=== PATIENT | female | born 1975 ===

== ENCOUNTER 2016-09-10 09:19 | Inpatient (IN) | payer OTHER ==
[2016-09-04 08:50] VITALS: BMI 22.6
[2016-09-10] MEDS ORDERED: Lactated Ringer's 1,000 ML IV ONE ×3 (11:15→14:00)
[2016-09-10] MEDS ORDERED: Propofol 10 mg/ml Inj (20 ML) ONE (11:24)
[2016-09-10] MEDS ORDERED: Midazolam 2 MG/2 ML VIAL ONE (11:24)
[2016-09-10] MEDS ORDERED: cefOXitin IV 2 gm in Dextrose 2 GM/50 ML BAG IVPB ONE ×2 (11:40→15:34)
[2016-09-10] MEDS ORDERED: Sodium Chloride 0.9% 60 ML IV ONE (12:01)
[2016-09-10] MEDS ORDERED: Vasopressin 20 Units/ml Inj ONE (12:01)
[2016-09-10] MEDS ORDERED: Methylene Blue 10 mg/mL(10ml) IV ONE (13:50)
[2016-09-10] MEDS ORDERED: Clindamycin 2% Vaginal Cream(40 gm) ONE (15:25)
[2016-09-10] MEDS ORDERED: Neostigmine Methylsulfate 3mg/3ml Syringe IV ONE (15:26)
[2016-09-10] MEDS ORDERED: Sodium Chloride 0.9% 1,000 ML IV SCH (15:45)
[2016-09-10] MEDS ORDERED: HYDROmorphone 0.5 mg/0.5 ml ISec IVP PRN ×2 (15:51→16:07)
--- NOTE | 2016-09-10 16:57 | PCM.SURG1 ---
Surgeon's Initial Post Op Note - Surgeon's Notes Surgeon: Dr. Mohamud Parts Sales Advisor: Dr. Silva Type of Anesthesia: General Endo Anesthesia Administered By: Dr. Mendoza Pre-Operative Diagnosis: 40 yo with Chronic Pelvic Pain, Menorrhagia, Fibroid uterus , Endometriosis , Failure of Medical surgical theRAPy Operative Findings: AV uterus, Dense Multiple adhesion , Right Ovarian cyst Post-Operative Diagnosis: same as above with additional finding Dense adhesions Operation Performed: Laparoscopy Hysterectomy , RSA, Left salpingectomy, Lysis of adhesion Cystoscopy Specimen/Specimens Removed: Uterus, cervix, Right tube and ovary , Left Tube Estimated Blood Loss: EBL {In ML}: 100 Blood Products Given: N/A Drains Used: No Drains Post-Op Condition: Good Date of Surgery/Procedure: 09/10/16 Time of Surgery/Procedure: 16:59
[2016-09-10] MEDS ORDERED: Sodium Chloride 0.9% 1,000 ML IV ONE (17:15)
[2016-09-10] MEDS: Oxycodone/Acetaminophen 5/325 mg Tab PO PRN (22:10)
[2016-09-11] MEDS: Lactated Ringer's 1,000 ML IV SCH ×3 (01:54→09:11)
[2016-09-11] MEDS: Oxycodone/Acetaminophen 5/325 mg Tab PO PRN ×4 (05:50→20:56)
[2016-09-11 07:19] LABS: CHLORIDE 100 mmol/L (98-107); HEMATOCRIT 31.8 % (34.0-47.0); MEAN CELL VOLUME 82.3 fL (81.0-99.0); MEAN CORPUSCULAR HEMOGLOBIN 27.1 pg (27.0-31.0); MEAN PLATELET VOLUME 9.4 fL (7.2-11.7); POTASSIUM 3.2 mmol/L (3.6-5.2); RED CELL DISTRIBUTION WIDTH 14.4 % (11.5-14.5); SODIUM 134 mmol/L (132-148); WHITE BLOOD COUNT 9.9 K/uL (4.8-10.8)
[2016-09-11 07:22] LABS: BLOOD UREA NITROGEN 9 mg/dL (7-17); CARBON DIOXIDE 28 mmol/L (22-30); GFR AFRICAN-AMERICAN > 60
[2016-09-11 07:23] LABS: CALCIUM 7.7 mg/dl (8.6-10.4); GLUCOSE,RANDOM 113 mg/dL (65-105)
[2016-09-11] MEDS: Potassium Chloride 20 mEq ER Tab PO SCH ×2 (11:02→18:05)
--- NOTE | 2016-09-11 21:06 | CP.PCM.PN ---
Subjective - Date & Time of Evaluation Date of Evaluation: 09/11/16 Time of Evaluation: 09:00 - Subjective Subjective: pt doing well, slow to advance, still on clears, voiding via vargas, has not gotten OOB Objective - Vital Signs/Intake and Output Vital Signs (last 24 hours): Temp Pulse Resp BP Pulse Ox 99.5 F 86 20 101/66 99 09/11/16 16:00 09/11/16 16:00 09/11/16 16:00 09/11/16 16:00 09/11/16 16:00 Intake and Output: 09/11/16 09/12/16 18:59 06:59 Intake Total 2075 Output Total 1150 Balance 925 - Medications Medications: Current Medications Ascorbic Acid (Vitamin C 500 Mg Tab) 500 mg PO DAILY [facility] Last Admin: 09/11/16 09:06 Dose: 500 mg Docusate Sodium (Colace) 100 mg PO BID [facility] Last Admin: 09/11/16 18:06 Dose: 100 mg Hydromorphone HCl (Dilaudid) 0.5 mg IVP Q4H PRN PRN Reason: Pain, severe (8-10) Sodium Chloride (Sodium Chloride 0.9%) 1,000 mls @ 0 mls/hr IV .Q0M [facility] PRN Reason: Per Protocol Lactated Ringer's (Lactated Ringer's) 1,000 mls @ 150 mls/hr IV .Q6H40M [facility] Last Admin: 09/11/16 09:11 Dose: 150 mls/hr Oxycodone/Acetaminophen (Percocet 5/325 Mg Tab) 1 tab PO Q4H PRN PRN Reason: Pain, moderate (4-7) Stop: 09/13/16 15:54 Last Admin: 09/11/16 20:56 Dose: 1 tab - Labs Labs: 09/11/16 07:03 09/11/16 07:03 - Constitutional Appears: Well - Head Exam Head Exam: ATRAUMATIC, NORMAL INSPECTION, NORMOCEPHALIC - Eye Exam Eye Exam: EOMI, Normal appearance, PERRL Pupil Exam: NORMAL ACCOMODATION, PERRL - ENT Exam ENT Exam: Mucous Membranes Moist, Normal Exam - Neck Exam Neck Exam: Full ROM, Normal Inspection. absent: Lymphadenopathy - Respiratory Exam Respiratory Exam: Clear to Ausculation Bilateral, NORMAL BREATHING PATTERN - Cardiovascular Exam Cardiovascular Exam: REGULAR RHYTHM, +S1, +S2. absent: Murmur - GI/Abdominal Exam GI & Abdominal Exam: Soft, Normal Bowel Sounds. absent: Tenderness - Rectal Exam Rectal Exam: NORMAL INSPECTION - Exam Exam: NORMAL INSPECTION External exam: NORMAL EXTERNAL EXAM Speculum exam: NORMAL SPECULUM EXAM Bimanual exam: NORMAL BIMANUAL EXAM Additional comments: vaginal packing removed, minimal bleeding - Extremities Exam Extremities Exam: Full ROM, Normal Capillary Refill, Normal Inspection. absent : Joint Swelling, Pedal Edema - Back Exam Back Exam: NORMAL INSPECTION - Neurological Exam Neurological Exam: Alert, Awake, CN II-XII Intact, Normal Gait, Oriented x3 - Psychiatric Exam Psychiatric exam: Normal Affect, Normal Mood - Skin Skin Exam: Dry, Intact, Normal Color, Warm Assessment and Plan - Assessment and Plan (Free Text) Assessment: POD#1 s/p TLH, bilateral salpingectomy right oopherectomy slow to advance OOB Voiding trial advance diet continue pain management encourage ambulating not yet stable for discharge If advanced tomorrow, discharge instructions discussed
[2016-09-12] MEDS: Oxycodone/Acetaminophen 5/325 mg Tab PO PRN ×2 (06:14→13:26)
[2016-09-12 09:00] VITALS: BP 97/64; PULSE 82; RESP 18; TEMP 99; O2SAT 97
--- NOTE | 2016-09-13 07:31 | OP ---
PROCEDURE DATE: 09/10/2016 PREOPERATIVE DIAGNOSES: Symptomatic uterine fibroid, menorrhagia, endometriosis, chronic pelvic pain . POSTOPERATIVE DIAGNOSES: Again, symptomatic fibroid uterus, menorrhagia, pelvic pain as well as abdo fabien pelvic adhesions, endometriosis. PROCEDURES: Total laparoscopic hysterectomy as well as a right salpingo-oophorectomy, a left salping ectomy, extensive enterolysis, and cystoscopy. SURGEON: Dr. Mohamud. FIRST AID INSTRUCTOR: Dr. Silva INDICATIONS: The patient was a 40-year-old female with history of chronic pelvic pain for many years , as well as symptomatic uterine fibroids and menorrhagia with failure of medical and surgical therap y prior to undergoing this procedure. The patient understands and accepts all the risk and benefits of the procedure. She understood as well that with the chronic pelvic pain, it could reoccur after t he surgical procedure. She was also informed that the risk factors of the procedure include infectio n, bleeding, damage to surrounding organs and tissue affecting the small bowel, the large bowel, the rectum, the bladder. Risk factors were explained, but not limited to, complications from anesthesia and even possible . Consent was signed preoperatively and all questions were answered, and the patient understood the fact that she was undergoing a hysterectomy in which she will not be able to c arry children in the future, as well as she understood the fact that the reoccurrence of chronic pelv ic pain can reoccur later on due to her endometriosis or possible adhesions. DESCRIPTION OF PROCEDURE: Following the induction of general endotracheal anesthesia, the patient wa s prepped and draped in a normal sterile fashion. She was placed in dorsal lithotomy position for a vaginal and abdominal surgery. In that particular time, a weighted speculum was placed into the vagi na. The anterior lip of the cervix was grasped with a single-tooth tenaculum. The uterus was gently sounded to approximately 10 cm. The VCare medium-size was utilized as far as the uterine manipulato r, and it was placed within the endometrial cavity. The single tooth tenaculum was removed and then attention was turned to the umbilical fold in which a 5 mm skin incision was made. The Optiview troc ar was introduced under direct visualization L. The second and the third puncture sites were pl aced in the right and the left lower quadrants using 5 mg ports. It was noted that upon the scope th at she had significant adhesions between the small bowel was attached to the uterus on the righ t side. It was also noted that she had a right ovarian cyst that looked to be an endometrioma, as we ll as multiple adhesions on the right side. The left ovary looked completely normal. The uterus was enlarged, approximately 10 weeks in size, consistent with like a fibroid. In that particular instan ce, the LigaSure was used to cut along the round ligament bilaterally. This allowed separation of th e anterior and posterior leaf of the broad ligament. The vesicouterine fold was then dissected out o f the lower uterine segment. Dissection of the infundibulopelvic ligament was performed using the Li gaSure on the right side. This dissection was carried down to the uterosacral ligaments bilaterally and the cardinal ligaments were using the LigaSure. The uterine artery and the veins were coag ulated and cut. The vagina was entered at 11 o'clock and just distal to the cervix, and a circumfere ntial incision was made using the hook, just cutting and coagulating the tissue removing the cervix _ ____ to the vagina, so the uterus and the cervix then subsequently was pushed through the vagina for ease of removal. In that particular time, the vaginal cuff was closed with 0 Vicryl. Excellent hemo stasis was noted. Vaginal packing was placed and then a copious amount of warm normal saline solutio n was used to irrigate the abdomen. Adequate hemostasis was noted. [facility] Excellent hemostasis. removed under direct visualization and vaginal instruments were re moved from the vagina . Instrument count and we then proceeded to perform a cystoscopy, which the Tobias catheter was then removed. Methylene blue was given to the patient, whi ch making sure that no injury to the bladder or the ureter. The patient tolerated the procedur e well. A 70-degree and a new Tobias was then placed. Again, instrument and lap counts were co rrect x 2. The patient was then taken to recovery room in stable condition. Janet Mohamud MD cc: [id number] TT: 09/13/2016 02:03:31 tn 09/13/2016 06:30:39
== END 2016-09-12 14:15 | disposition home or self-care (01) | DRG 743 ==
LOC: C.SDS 09:19 → UNDOADMIN 09:19 → C.9S 09:19 → EDSTATUS 10:30 → C.4M 15:44 → C.9S 18:00 → C.4M 18:00 → C.SDS 09-11 18:00
PROVIDERS: ADMIT Obstetrics & Gynecology; ATTEND Obstetrics & Gynecology
PROC: 0UT94ZZ Resection of Uterus, Percutaneous Endoscopic Approach (ICD-10-PCS; principal; 2016-09-11)
PROC: 0UT04ZZ Resection of Right Ovary, Percutaneous Endoscopic Approach (ICD-10-PCS; 2016-09-11)
PROC: 0UT74ZZ Resection of Bilateral Fallopian Tubes, Percutaneous Endoscopic Approach (ICD-10-PCS; 2016-09-11)
DX: N83.11 Corpus luteum cyst of right ovary (principal); D25.9 Leiomyoma of uterus, unspecified; N92.0 Excessive and frequent menstruation with regular cycle; N73.6 Female pelvic peritoneal adhesions (postinfective); N94.9 Unspecified condition associated with female genital organs and menstrual cycle; N80.9 Endometriosis, unspecified